=== PATIENT | male | born 1980 | race Two or more races ===

== ENCOUNTER 2019-05-15 23:12 | Emergency (ER) | payer SELFPAY ==
[~2019-05-15] VITALS: Ht 175.3 cm; Wt 83.9 kg
[2019-05-16] MEDS ORDERED: LISINOPRIL 20 MG TAB PO ONE (01:45)
[2019-05-16 01:53] VITALS: BP 139/90
== END 2019-05-16 01:54 ==
LOC: ER 23:15
DX: I16.0 Hypertensive urgency (principal); F17.210 Nicotine dependence, cigarettes, uncomplicated; Z02.89 Encounter for other administrative examinations